=== PATIENT | male | born 1975 | race Caucasian/White ===

== ENCOUNTER 2020-01-23 15:09 | Emergency (ER) | payer OTHER ==
[~2020-01-23] VITALS: Ht 170.2 cm; Wt 93.1 kg
[2020-01-23] MEDS ORDERED: ASPIRIN CHEWABLE 81 MG TABLET. PO ONE (15:15)
--- NOTE | 2020-01-23 15:19 | EKG ---
[address] [address] Test Date: 2020-01-23 Test Time: 15:13:06 Pat Name: MARK CHILDERS Department: Room: Gender: M Human Resources Designate: DELFINO : 1975 Requested By: YU PRETTY Order Number: [id number] Reading MD: Measurements Intervals [place] Rate: 101 P: 42 MD: 160 QRS: 18 QRSD: 72 T: 46 QT: 328 QTc: 426 Interpretive Statements SINUS TACHYCARDIA OTHERWISE NORMAL ECG RI6.02 No previous ECG available for comparison
--- NOTE | 2020-01-23 15:21 | PHYS DOC ---
General Adult EDM: Chief Complaint: Chest Pain HPI: HPI: 44-year-old male with past medical history significant for diabetes and obesity presents to the ER with complaint of chest pain that started 2 hours prior to arrival that radiates into his back and is described as sharp and rated 4/10 currently. His pain waxes and wanes and has been up to an 8/10. He has no cough and denies this of breath. Inspiration causes mild increase in his pain. No medications taken prior to arrival. He reports a history of pancreatitis multiple times. 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 (YU EUBANKS DO) Review of Systems: Review of Systems: All other systems negative except as documented in HPI. (YU EUBANKS DO) Heart Score: HEART Score for Chest Pain: HEART Score for Chest Pain Response (Comments) Value History Moderately Suspicious 1 ECG Normal 0 Age < 45 0 Risk Factors 1 or 2 Risk Factors 1 Troponin < Normal Limit 0 Total 2 Risk Factors: Risk Factors: DM, Current or recent (<one month) smoker, HTN, HLP, family history of CAD, obesity. Risk Scores: Score 0 - 3: 2.5% MACE over next 6 weeks - Discharge Home Score 4 - 6: 20.3% MACE over next 6 weeks - Admit for Clinical Observation Score 7 - 10: 72.7% MACE over next 6 weeks - Early Invasive Strategies (YU EUBANKS DO) HEART Score for Chest Pain: HEART Score for Chest Pain Response (Comments) Value History Slighlty/Non-Suspicious 0 ECG Nonspecific Repolarizatio 1 Age < 45 0 Risk Factors 1 or 2 Risk Factors 1 Troponin < Normal Limit 0 Total 2 Current Medications: Current Meds: Current Medications Medications (Trade) Dose Ordered Sig/Kerry Start Time Stop Time Status Last Admin Dose Admin Aspirin (Aspirin Chewable) 324 mg 1X ONCE 01/23/20 15:15 01/23/20 15:16 UNV Nitroglycerin (Nitrostat) 0.4 mg PRN Q5MIN PRN 01/23/20 15:30 UNV (YU EUBANKS DO) Physical Exam: PE: Constitutional: Well developed, well nourished, 44-year-old male lying in bed in no acute distress at this time. HENT: Normocephalic, atraumatic, bilateral external ears normal, oropharynx moist, no oral exudates, nose normal. [] Eyes: PERRLA, EOMI, conjunctiva normal, no discharge. [] Neck: Normal range of motion, no tenderness, supple, no stridor. [] Cardiovascular:Heart rate regular rhythm, no murmur, trace bilateral lower extremity edema Lungs & Thorax: Bilateral breath sounds clear to auscultation [] Abdomen: Bowel sounds normal, soft, mild epigastric tenderness., no masses, no pulsatile masses. [] Skin: Warm, dry, no erythema, no rash. [] Back: No tenderness, no CVA tenderness. [] Extremities: No tenderness, no cyanosis, no clubbing, ROM intact Neurologic: Alert and oriented X 3, normal motor function, normal sensory function, no focal deficits noted. [] Psychologic: Affect normal, judgement normal, mood normal. [] (YU EUBANKS DO) Current Patient Data: Labs: Laboratory Tests Test 01/23/20 15:20 01/23/20 18:18 White Blood Count 3.9 x10^3/uL Red Blood Count 4.27 x10^6/uL Hemoglobin 11.7 g/dL Hematocrit 34.2 % Mean Corpuscular Volume 80 fL Mean Corpuscular Hemoglobin 27 pg Mean Corpuscular Hemoglobin Concent 34 g/dL Red Cell Distribution Width 13.8 % Platelet Count 106 x10^3/uL Neutrophils (%) (Auto) 65 % Lymphocytes (%) (Auto) 22 % Monocytes (%) (Auto) 9 % Eosinophils (%) (Auto) 3 % Basophils (%) (Auto) 1 % Neutrophils # (Auto) 2.5 x10^3uL Lymphocytes # (Auto) 0.8 x10^3/uL Monocytes # (Auto) 0.3 x10^3/uL Eosinophils # (Auto) 0.1 x10^3/uL Basophils # (Auto) 0.0 x10^3/uL Prothrombin Time 10.5 SEC Prothromb Time International Ratio 1.0 Activated Partial Thromboplast Time 25 SEC Sodium Level 136 mmol/L Potassium Level 3.7 mmol/L Chloride Level 101 mmol/L Carbon Dioxide Level 27 mmol/L Anion Gap 8 Blood Urea Nitrogen 15 mg/dL Creatinine 1.3 mg/dL Estimated GFR (Cockcroft-Gault) 60.0 BUN/Creatinine Ratio 12 Glucose Level 260 mg/dL Calcium Level 9.0 mg/dL Magnesium Level 1.8 mg/dL Total Bilirubin 0.5 mg/dL Aspartate Amino Transf (AST/SGOT) 19 U/L Alanine Aminotransferase (ALT/SGPT) 34 U/L Alkaline Phosphatase 88 U/L Creatine Kinase 155 U/L Creatine Kinase MB (Mass) 1.7 ng/mL Creatine Kinase MB Relative Index 1.1 % Troponin I Quantitative < 0.017 ng/mL < 0.017 ng/mL AV-Hsq-[id number]-Type Natriuretic Peptide 90 pg/mL Total Protein 7.6 g/dL Albumin 3.2 g/dL Albumin/Globulin Ratio 0.7 Lipase 84 U/L Current Medications Medications (Trade) Dose Ordered Sig/Kerry Route PRN Reason Start Time Stop Time Status Last Admin Dose Admin Aspirin (Aspirin Chewable) 324 mg 1X ONCE PO 01/23/20 15:15 01/23/20 15:25 DC 01/23/20 15:30 Nitroglycerin (Nitrostat) 0.4 mg PRN Q5MIN PRN SL CHEST PAIN 01/23/20 15:30 01/23/20 15:30 Sodium Chloride 1,000 ml @ 1,000 mls/hr 1X ONCE IV 01/23/20 15:30 01/23/20 16:29 DC 01/23/20 15:31 (DANIEL PEREZ DO) EKG: EKG: EKG shows sinus tachycardia with a ventricular rate of 101, normal intervals and no ST changes. (YU EUBANKS DO) Radiology/Procedures: Radiology/Procedures: INDICATION: Chest pain COMPARISON: No Prior FINDINGS: Heart is upper limits normal in size. Mediastinal and hilar contours are normal. Subtle patchy opacities in the right infrahilar lung. No lobar consolidation. No pleural effusion or pneumothorax. IMPRESSION: Patchy opacities in the infrahilar right lung may be infectious or inflammatory in nature although atelectasis would also have this appearance. Imaging follow-up to resolution is recommended. (YU EUBANKS DO) Radiology/Procedures: [address] [address] IMAGING REPORT Signed PATIENT: MARK CHILDERSCCOUNT: [id number] : 1975 LOCATION: ER AGE: 44 SEX: M EXAM STATUS: REG ER ORD. PHYSICIAN: YU EUBANKS DO REASON: CHEST PAIN PROCEDURE: CHEST AP ONLY EXAM: AP View of the chest DATE: 01/23/2020 3:10 PM INDICATION: Chest pain COMPARISON: No Prior FINDINGS: Heart is upper limits normal in size. Mediastinal and hilar contours are normal. Subtle patchy opacities in the right infrahilar lung. No lobar consolidation. No pleural effusion or pneumothorax. IMPRESSION: Patchy opacities in the infrahilar right lung may be infectious or inflammatory in nature although atelectasis would also have this appearance. Imaging follow-up to resolution is recommended. Electronically signed by: Giovany Chavarria MD (01/23/2020 3:46 PM) [facility] DICTATED AND SIGNED BY: GIOVANY CHAVARRIA MD DATE: 01/23/20 1546 CC: YU EUBANKS DO; PCP,NO ~ (DANIEL PEREZ DO) Course & Med Decision Making: Course & Med Decision Making Pertinent Labs and Imaging studies reviewed. (See chart for details) 1521: Patient seen for chest pain with a history of pancreatitis and diabetes. Initiate cardiac work-up, give aspirin and nitro. Give IV fluids. 1816: This patient's work-up is complete at this time and is rather unremarkable. His pain resolved with 1 nitro. He has been pain-free since. He is mildly thrombocytopenic which he states he has a history of. His initial troponin is negative and his Mace is 2; will repeat troponin at 1820. Transi tion care to Dr. Perez at 1800. Disposition pending troponin. Patient will also be swabbed for coronavirus due to his chest x-ray findings. Proper PPE was worn throughout the patient's course. (YU EUBANKS DO) Course & Med Decision Making I have received signout on the patient's emergency department care from Dr. Eubanks. We discussed the history, physical exam findings, completed and pending laboratory results and imaging studies. We have also discussed the current t reatment plan and expected clinical course. Please refer to further update notes for additional information regarding the patient's final diagnosis and disposition. In brief patient is a 44-year-old male who presents with chief complaint of sharp chest pain that seems to radiate to his back. Initial EKG without acute ischemic changes. Chest x-ray nonacute. Initial troponin negative. Patient is estimated be low risk heart score. Per signout Dr. Eubanks did discuss the possibility of hospitalization for ACS rule out versus repeat troponin and discharge home. Patient states he is from out of town working [place] temporarily and would prefer to repeat lab testing and be discharged home. Repeat troponin remains negative. On repeat assessment he is currently chest pain-free. I did reengage the patient in a discussion regarding the possibility of hospitalization for further cardiac testing discharge home. He is continued to climb would like to be discharged home. Overall I do feel this is reasonable. PERC negative. Patient remains chest pain-free and has a low heart score. Return precautions discussed and understood. Instructed to follow-up with his primary care physician in the next 2 to 3 days. Stable for discharge home. (DANIEL PEREZ DO) Dragon Disclaimer: Darryl Disclaimer: This electronic medical record was generated, in whole or in part, using a voice recognition dictation system. (YU EUBANKS DO) Departure Departure: Impression: Primary Impression: Chest pain Qualified Codes: R07.9 - Chest pain, unspecified Additional Impression: Uncontrolled diabetes mellitus Qualified Codes: E11.65 - Type 2 diabetes mellitus with hyperglycemia Disposition: HOME/RESIDENCE PRIOR TO ADM Condition: STABLE Referrals: PCP,STELLA (PCP) Patient Instructions: Chest Pain (Nonspecific) Additional Instructions: Please follow-up with your doctor in [place] when you get back home for a recheck and cardiac work-up. Return to the ER if your symptoms worsen. Justification of Admission: Justification of Admission: Justification of Admission Dx: N/A (YU EUBANKS DO) Justification of Admission Dx: N/A (DANIEL PEREZ DO) YU EUBANKS DO Jan 23, 2020 15:21 DANIEL PEREZ DO Jan 23, 2020 18:58
[2020-01-23] MEDS ORDERED: NITROGLYCERIN SUBLINGUAL 0.4 MG BOTTLE OF 25. SL PRN (15:30)
[2020-01-23] MEDS ORDERED: IV NORMAL SALINE 1,000ML 1,000 ML IV ONE (15:30)
[2020-01-23 15:44] LABS: BASO % 1 % (0-3); EOS # 0.1 x10^3/uL (0.0-0.7); EOS % 3 % (0-3); HEMATOCRIT 34.2 % (39.0-53.0); HEMOGLOBIN 11.7 g/dL (13.0-17.5); LYMPH # 0.8 x10^3/uL (1.0-4.8); LYMPH % 22 % (24-48); MEAN CORPUSCULAR HEMOGLOBIN 27 pg (25-35); MEAN CORPUSCULAR HGB CONC 34 g/dL (31-37); MEAN CORPUSCULAR VOLUME 80 fL (79-100); MONO # 0.3 x10^3/uL (0.0-1.1); MONO % 9 % (0-9); NEUT # 2.5 x10^3uL (1.8-7.7); NEUT % 65 % (31-73); PLATELET COUNT 106 x10^3/uL (140-400); RED BLOOD COUNT 4.27 x10^6/uL (4.30-5.70); RED CELL DISTRIBUTION WIDTH 13.8 % (11.5-14.5); WHITE BLOOD COUNT 3.9 x10^3/uL (4.0-11.0)
--- NOTE | 2020-01-23 15:49 | RAD ---
EXAM: AP View of the chest DATE: 01/23/2020 3:10 PM INDICATION: Chest pain COMPARISON: No Prior FINDINGS: Heart is upper limits normal in size. Mediastinal and hilar contours are normal. Subtle patchy opacities in the right infrahilar lung. No lobar consolidation. No pleural effusion or pneumothorax. IMPRESSION: Patchy opacities in the infrahilar right lung may be infectious or inflammatory in nature although atelectasis would also have this appearance. Imaging follow-up to resolution is recommended. Electronically signed by: Giovany Salazar MD (01/23/2020 3:46 PM) [facility]
[2020-01-23 15:52] LABS: CREATININE 1.3 mg/dL (0.7-1.3); POTASSIUM 3.7 mmol/L (3.5-5.1)
[2020-01-23 16:08] LABS: ALBUMIN 3.2 g/dL (3.4-5.0); ALBUMIN/GLOBULIN RATIO 0.7 (1.0-1.7); MAGNESIUM 1.8 mg/dL (1.8-2.4); TOTAL BILIRUBIN 0.5 mg/dL (0.2-1.0); TOTAL PROTEIN 7.6 g/dL (6.4-8.2)
[2020-01-23 18:46] VITALS: BP 130/82
--- NOTE | 2020-01-25 10:29 | NUR ---
IP: attempt to notify patient of COVID result, left message to call back.
== END 2020-01-23 19:00 | disposition home or self-care (01) ==
LOC: ER 15:09
DX: R07.9 Chest pain, unspecified (principal); E11.65 Type 2 diabetes mellitus with hyperglycemia; R10.13 Epigastric pain; R60.0 Localized edema; E66.9 Obesity, unspecified; Z20.828 Contact with and (suspected) exposure to other viral communicable diseases; Z68.32 Body mass index [BMI] 32.0-32.9, adult
CPT/HCPCS: 36415; 71045; 80053; 82553; 83690; 83735; 83874; 83880; 84484; 85025; 85610; 85730; 93005; 96360; 99285; J7030; U0003